=== PATIENT | female | born 1950 | race Caucasian/White ===

== ENCOUNTER → 2018-10-15 | Outpatient (CLI) | payer OTHER ==
[~2018-10-15] MED LIST: ATOR40TA71 PO; IBUP-2070 PO; MULT-1258 PO
== END | disposition home or self-care (01) ==
LOC: RAH 08:08
PROVIDERS: ATTEND Family Medicine
DX: M47.26 Other spondylosis with radiculopathy, lumbar region (principal); M48.061 Spinal stenosis, lumbar region without neurogenic claudication
CPT/HCPCS: 72148